=== PATIENT | female | born 1995 | race Two or more races ===

== ENCOUNTER 2018-11-02 13:09 | Emergency (ER) | payer SELFPAY ==
[2018-11-02 13:19] VITALS: BP 130/60; PULSE 98; TEMP 99.1; BMI 23.4
[2018-11-02 14:10] LABS: URINE APPEARANCE SLCLOUDY; URINE BILIRUBIN NEGATIVE (<2.0 mg/dL); URINE COLOR YELLOW; URINE GLUCOSE (UA) NEGATIVE (NEGATIVE); URINE KETONE NEGATIVE (NEGATIVE); URINE LEUK ESTERASE TRACE (NEGATIVE); URINE NITRITE NEGATIVE (NEGATIVE); URINE PROTEIN NEGATIVE (NEGATIVE); URINE UROBILINOGEN NEGATIVE mg/dL (0.2-1.0)
[2018-11-02 14:27] LABS: EPI CELLS RARE /HPF (FEW); URINE MUCUS FEW
--- NOTE | 2018-11-02 14:58 | PDOC ---
History of Present Illness - General Chief Complaint: Vaginal Sxs Stated Complaint: VAGINAL LUMP Time Seen by Provider: 11/02/18 14:12 History Source: Patient - History of Present Illness Initial Comments: 11/02/18 14:33 22 year old female with right labia swelling and pain for the last 2 days. denies fever/ chills. denie sNVD, abdominal pain./ Past History - Past Medical History Allergies/Adverse Reactions: Allergies Allergy/AdvReac Type Severity Reaction Status Date / Time No Known Allergies Allergy Verified 11/02/18 13:20 Home Medications: Ambulatory Orders Ibuprofen 600 mg PO QID PRN #20 tablet 11/02/18 - Suicide/Smoking/Psychosocial Hx Smoking History: Never smoked Have you smoked in the past 12 months: No Information on smoking cessation initiated: No Hx Alcohol Use: No Drug/Substance Use Hx: No Review of Systems - Review of Systems Able to Perform ROS?: Yes Is the patient limited Thai proficient: No Constitutional: No: Symptoms Reported, See HPI, Chills, Diaphoresis, Fever, Loss of Appetite, Malaise, Night Sweats, Weakness, Weight Stable, Unintentional Wgt. Loss, Unexplained wgt Loss, Other : Yes: Other (vaginal pain). No: Symptoms Reported, See HPI, Burning, Dysuria , Discharge, Frequency, Flank Pain, Hematuria, Incontinence, Pain, Urgency, Testicular Mass, Testicular Swelling, Lesions, Testicular Pain Musculoskeletal: No: Symptoms Reported, See HPI, Back Pain, Gout, Joint Pain, Joint Swelling, Muscle Pain, Muscle Weakness, Neck Pain, Joint Stiffness, Other *Physical Exam - Vital Signs Last Vital Signs Temp Pulse Resp BP Pulse Ox 99.1 F 98 H 16 130/60 100 11/02/18 13:18 11/02/18 13:18 11/02/18 13:18 11/02/18 13:18 11/02/18 13:18 - Physical Exam General Appearance: Yes: Appropriately Dressed Female Pelvic Exam: positive: normal external exam, Bartholin mass (right labia) Neurologic: positive: Fully Oriented, Alert Moderate Sedation - Procedure Monitoring Vital Signs: Procedure Monitoring Vital Signs Temperature 99.1 F 11/02/18 13:18 Pulse Rate 98 H 11/02/18 13:18 Respiratory Rate 16 11/02/18 13:18 Blood Pressure 130/60 11/02/18 13:18 O2 Sat by Pulse Oximetry (%) 100 11/02/18 13:18 Procedures - Incision and Drainage I&D Site: Right: Bartholin Anesthesia: 1% Lidocaine Blade Size: 11 Plain Packing: No (no packing inserted,. minimal drainage) Dressing: Yes ED Treatment Course - ADDITIONAL ORDERS Additional order review: Laboratory Results 11/02/18 11/02/18 13:00 13:00 Urine Color Yellow Urine Appearance Slcloudy Urine pH 6.0 Ur Specific [place] 1.025 Urine Protein Negative Urine Glucose (UA) Negative Urine Ketones Negative Urine Blood 2+ H Urine Nitrite Negative Urine Bilirubin Negative Urine Urobilinogen Negative Ur Leukocyte Esterase Trace Urine WBC (Auto) 7 Urine RBC (Auto) 19 Ur Epithelial Cells Rare Urine Mucus Few Urine HCG, Qual Negative Progress Note - Progress Note Progress Note: A: [place]in cyst P: see procedure note. packing not inserted. *DC/Admit/Observation/Transfer Diagnosis at time of Disposition: Bartholin cyst - Discharge Dispostion Disposition: HOME Condition at time of disposition: Stable - Prescriptions Prescriptions: Ibuprofen 600 mg PO QID PRN #20 tablet PRN Reason: Pain - Referrals Referrals: [facility] [Outside] Pepe Ortega MD [Staff Physician] - - Patient Instructions Printed Discharge Instructions: Bartholin Gland Cyst Additional Instructions: apply warm compress to the area continue Animating Touch back in 2 days for wound check. Additional Instructions: * Please call your personal physician to report your Emergency Department visit and to report your progress, if any. * If there is no improvement in symptoms in 2 days call your physician. * Return to the Emergency Department for any worsening symptoms. - Post Discharge Activity Forms/Work/School Notes: Back to Work
== END 2018-11-02 15:17 | disposition home or self-care (01) ==
LOC: JERFT 13:09
PROC: 0U9L0ZZ Drainage of Vestibular Gland, Open Approach (ICD-10-PCS; principal; 2018-11-02)
DX: N75.1 Abscess of Bartholin's gland (principal); N75.0 Cyst of Bartholin's gland
CPT/HCPCS: 36415; 81003; 81015; 84703; 87086; 87491; 87591; 99281-25

== ENCOUNTER 2021-06-29 19:37 | Emergency (ER) | payer OTHER ==
[2021-06-29 19:46] VITALS: BP 125/75; PULSE 109; TEMP 97.8; BMI 26.4
[2021-06-29] MEDS ORDERED: ACETAMINOPHEN 1000 MG/100 ML VIAL (NON FORMULARY) IVPB ONE (21:51)
[2021-06-29] MEDS ORDERED: SODIUM CHLORIDE 0.9% 1000 ML INFUS.BAG IV ONE (21:51)
[2021-06-29] MEDS ORDERED: ACETAMINOPHEN INJECTION 100 ML IVPB ONE (22:08)
[2021-06-29 22:35] LABS: HEMATOCRIT 36.9 % (32.4-45.2); HEMOGLOBIN 12.6 GM/dL (10.7-15.3); LYMPH % 33.5 % (8-40); MCH 32.1 pg (25.7-33.7); MCHC 34.2 g/dl (32.0-36.0); MEAN PLT VOLUME 7.7 fl (7.5-11.1); MONO % 9.1 % (3.8-10.2); NEUT % 54.4 % (42.8-82.8); PLATELET COUNT 324 10^3/uL (134-434); RBC 3.93 M/mm3 (3.60-5.2); RDW 12.6 % (11.6-15.6); WHITE BLOOD COUNT 7.8 K/mm3 (4.0-10.0)
[2021-06-29 22:44] LABS: ALBUMIN 3.8 g/dl (3.4-5.0)
[2021-06-29 22:47] LABS: CREATININE 0.7 mg/dL (0.55-1.3)
[2021-06-29 22:48] LABS: BILIRUBIN,TOTAL 0.3 mg/dL (0.2-1); TOT PROT 7.1 g/dl (6.4-8.2)
[2021-06-29 23:51] LABS: EPI CELLS 9 /uL (0-25.1); HYALINE CASTS 1 /uL (0-3.1); PH,URINE 6.5 (5.0-8.0); URINE APPEARANCE CLEAR; URINE BACTERIA 163 /uL (0-1359); URINE BILIRUBIN NEGATIVE (NEGATIVE); URINE COLOR YELLOW; URINE GLUCOSE (UA) NEGATIVE (NEGATIVE); URINE KETONE NEGATIVE (NEGATIVE); URINE LEUK ESTERASE NEGATIVE (NEGATIVE); URINE NITRITE NEGATIVE (NEGATIVE); URINE PROTEIN NEGATIVE (NEGATIVE); URINE RBC 57 /uL (0-23.9); URINE WBC 3 /uL (0-25.8)
== END 2021-06-30 | disposition home or self-care (01) ==
LOC: JER 19:37
PROC: 3E0333Z Introduction of Anti-inflammatory into Peripheral Vein, Percutaneous Approach (ICD-10-PCS; principal; 2021-06-29)
DX: R42 Dizziness and giddiness (principal)
CPT/HCPCS: 36415; 80053; 81003; 84703; 85025; 87086; 87804; 93005; 93010; 99284-25; C9803; J0131; U0003; U0005

== ENCOUNTER 2025-03-16 22:59 | Emergency (ER) | payer OTHER ==
[2025-03-16 23:09] VITALS: BP 125/65; PULSE 94; RESP 18; TEMP 98.9; BMI 25.0
[2025-03-17] MEDS ORDERED: IBUPROFEN 400 MG TABLET (FP) PO ONE (00:15)
[2025-03-17] MEDS ORDERED: DIPHTH,PERTUSS(ACELL),TET 0.5 ML DISP.SYRIN IM ONE (00:16)
[2025-03-17] MEDS: DIPHTH,PERTUSS(ACELL),TET 0.5 ML DISP.SYRIN IM ONE (00:23)
[2025-03-17] MEDS: IBUPROFEN 400 MG TABLET (FP) PO ONE (00:23)
== END 2025-03-17 00:55 | disposition home or self-care (01) ==
LOC: JER 22:59
PROC: 0HQGXZZ Repair Left Hand Skin, External Approach (ICD-10-PCS; principal; 2025-03-16)
PROC: 3E0234Z Introduction of Serum, Toxoid and Vaccine into Muscle, Percutaneous Approach (ICD-10-PCS; 2025-03-16)
DX: S61.211A Laceration without foreign body of left index finger without damage to nail, initial encounter (principal); Z23 Encounter for immunization; W27.4XXA Contact with kitchen utensil, initial encounter; Y93.G1 Activity, food preparation and clean up
CPT/HCPCS: 12001-25; 73130-TC-LT-FY; 90471; 90715; 99284-25